=== PATIENT | male | born 1985 ===

== ENCOUNTER 2017-10-16 20:00 | Emergency (ER) | payer SELFPAY ==
[2017-10-16 20:17] VITALS: BP 145/81; PULSE 78; RESP 16; TEMP 98.9; O2SAT 100
--- NOTE | 2017-10-16 21:16 | ED PDOC ---
HPI: Male Pain Time Seen by Provider: 10/16/17 21:00 Chief Complaint (Nursing): Fever Chief Complaint (Provider): Urinary Symptoms History Per: Patient History/Exam Limitations: no limitations Onset/Duration Of Symptoms: Days (x1) Current Symptoms Are (Timing): Still Present Associated Symptoms: Urinary Symptoms ((+) dysuria), Other ((+) body aches) Additional Complaint(s): 32 year old male presents to ED with complaints of urinary symptoms x1 day. (+) fever (TMAX 101), dysuria, hematuria, frequency, urgency, body aches, and headache. Patient states that he has unprotected sexual intercourse with his , who had similar symptoms last month and was diagnosed with a kidney infection. Confirms that he has never experienced these symptoms before. (-) lesions on penis or penile discharge. Notes ibuprofen resolved fever. PCP: None Past Medical History Reviewed: Historical Data, Nursing Documentation, Vital Signs Vital Signs: Last Vital Signs Temp 98.9 F 10/16/17 20:15 Pulse 78 10/16/17 20:15 Resp 16 10/16/17 20:15 BP 145/81 10/16/17 20:15 Pulse Ox 100 10/16/17 20:15 - Family History Family History: States: Unknown Family Hx - Living Arrangements Living Arrangements: With Family - Social History Drugs: Denies - Home Medications Home Medications: Ambulatory Orders Medication Instructions Recorded Sulfamethoxazole/Trimethoprim 1 tab PO BID #20 tab 10/16/17 [Bactrim DS 800 mg-160 mg] - Allergies Allergies/Adverse Reactions: Allergies Allergy/AdvReac Type Severity Reaction Status Date / Time No Known Allergies Allergy Verified 02/23/16 21:24 Review of Systems ROS Statement: Except As Marked, All Systems Reviewed And Found Negative Constitutional: Positive for: Fever (resolved), Other ((+) body aches) Genitourinary Male: Positive for: Dysuria, Frequency, Hematuria. Negative for: Penile Discharge, Other ((-) lesions on penis) Neurological: Positive for: Headache Physical Exam - Reviewed Nursing Documentation Reviewed: Yes Vital Signs Reviewed: Yes - Physical Exam Appears: Positive for: Non-toxic, No Acute Distress Respiratory: Negative for: Respiratory Distress Gastrointestinal/Abdominal: Positive for: Soft. Negative for: Tenderness Back: Positive for: Normal Inspection. Negative for: L CVA Tenderness, R CVA Tenderness Neurologic/Psych: Positive for: Alert, Oriented. Negative for: Motor/Sensory Deficits - ECG O2 Sat by Pulse Oximetry: 100 (RA) Pulse Ox Interpretation: Normal Medical Decision Making Medical Decision Makin Initial impression: Initial plan: * UA * Influenza A B * * 2010 Influenza A/B (-) (-) * Urinary Tract Infection revealed on UA Scribe Attestation: Documented by Shi Chinchilla, acting as a scribe for Erick Barbosa PA-C. Provider Scribe Attestation: All medical record entries made by the Scribe were at my direction and personally dictated by me. I have reviewed the chart and agree that the record accurately reflects my personal performance of the history, physical exam, medical decision making, and the department course for this patient. I have also personally directed, reviewed, and agree with the discharge instructions and disposition. Disposition - Clinical Impression Clinical Impression: Urinary tract infection, Fever, Fever in adult - Disposition Referrals: Yoselyn Lemons MD [Medical Doctor] - Disposition Time: 22:30 Condition: GOOD Additional Instructions: if symptoms do not clear in 7-10 days, contact/follow up with the below urologist Prescriptions: Sulfamethoxazole/Trimethoprim [Bactrim DS 800 mg-160 mg] 1 tab PO BID #20 tab Instructions: Urinary Tract Infection, Adult (DC) Forms: [employer] (Spanish)
[2017-10-16 22:13] LABS: SQUAMOUS EPITHIAL 1 /hpf (0-5); URINE BACTERIA RARE (<OCC); URINE BILIRUBIN NEGATIVE (NEGATIVE); URINE BLOOD MODERATE (NEGATIVE); URINE CLARITY CLOUDY (Clear); URINE COLOR YELLOW (YELLOW); URINE GLUCOSE (UA) NEG (Normal); URINE LEUKOCYTE ESTERASE TRACE Leu/uL (Negative); URINE PROTEIN 100 mg/dL (NEGATIVE); URINE UROBILINOGEN 0.2-1.0 mg/dL (0.2-1.0); WBC CLUMPS FEW /hpf
== END 2017-10-16 23:13 | disposition home or self-care (01) ==
LOC: H.ER 20:00
DX: N39.0 Urinary tract infection, site not specified (principal); R50.9 Fever, unspecified